=== PATIENT | female | born 2000 | race Caucasian/White ===

== ENCOUNTER → 2023-03-04 18:45 | Outpatient (BNVA) | payer SELFPAY | PROVIDERS: Family Provider Family Medicine; PCP Family Medicine; Visit Provider Family Medicine | DX: N92.6 Irregular menstruation, unspecified (principal); Z32.00 Encounter for pregnancy test, result unknown; R11.0 Nausea | CPT/HCPCS: 84702 ==

== ENCOUNTER 2024-07-24 02:59 | Inpatient (IN) | payer OTHER, SELFPAY ==
[2024-07-23 23:53] VITALS: BMI 42.1
[2024-07-24] VITALS (80 sets, daily range): BP systolic 113–162; BP diastolic 56–109; PULSE 76–121; RESP 15–18; TEMP 35.4–36.9; O2SAT 96–99
[2024-07-24 00:47] LABS: Nitrazine Paper, PH Positive
[2024-07-24 00:55] LABS: Basophils % 0.2 %; Eosinophils # 0.1 10^3/uL (0.0-0.8); Eosinophils % 0.5 %; Hematocrit 34.5 % (36-47); Lymphocytes # 2.9 10^3/uL (0.8-4.8); Lymphocytes % 22.4 %; Mean Corpuscular HGB Conc 31.3 g/dL (30-55); Mean Corpuscular Volume 76.7 fl (85-98); Mean Platelet Volume 9.5 fL (7.4-10.4); Monocytes # 0.9 10^3/uL (0.2-0.9); Monocytes % 7.1 %; Neutrophils # 8.82 10^3/uL (1.8-7.7); Neutrophils % 68.9 %; Nucleated Red Blood Cells % 0 %; Platelet Count 351 10^3/cmm (157-399); White Blood Count 12.81 10^3/uL (3.29-11.43)
[2024-07-24] MEDS: ondansetron 2 mg/ML SDV 2 mL 4 MG IVP (06:20)
[2024-07-24] MEDS: dextrose 5%-lactated ringers 1,000 ML 125 ML IV ×2 (06:21→13:59)
--- NOTE | 2024-07-24 07:18 | P.HP_ITS ---
Providers/Chief Complaint 2 Admitting Physician: En Heaton MD Primary Care Provider: Nely Morin DO Chief Complaint: Poss leaking of fluid HPI [employer] History of Present Illness Betzaida Chan is a 24 year old G3, P1 female that presented at 39 weeks 3 days with possible spontaneous rupture. Patient was found to be grossly ruptured. Fluid was initially thought to be clear but then appeared meconium stained. Patient had no significant complications during . GBS is negative. Patient had minimal progression over night and is only dilated to 2 and half centimeters with contractions occurring every 3 to 7 minutes. Present Details : 2 Para: 1 Labs Rubella: Non-Immune RPR: Negative GBS: Negative Review of Systems 2 General: Reports: 10 or more systems reviewed and unremarkable except in HPI and below Medications/Allergies Home Medications ?Medication ?Instructions ?Recorded ?Confirmed ?Last Taken ?Type omeprazole 20 mg capsule,delayed 20 mg PO DAILY 07/24/24 07/23/24 History release Allergies Allergy/AdvReac Type Severity Reaction Status Date / Time No Known Allergies Allergy Verified 07/23/24 23:54 Vitals/I&O/Wt Last Vital Signs Temp 96.4 F L 07/24/24 03:10 Pulse 85 07/24/24 07:06 BP 128/60 07/24/24 07:06 O2 Del Method Room Air 07/24/24 00:46 Weight last 48 hrs Weight 107.955 kg Physical Exam 2 Const: COMMON NORMALS: no acute distress and patient oriented x3 Resp: COMMON NORMALS: normal respiratory effort and No retractions Cardio: COMMON NORMALS: no JVD, regular rate and regular rhythm GI: OTHER: Gravid Extremity: COMMON NORMALS: no clubbing, cyanosis or edema Neuro: COMMON NORMALS: patient oriented x3, moves all extremities, no focal motor deficits and no sensory deficits noted Psych: COMMON NORMALS: cooperative Skin: COMMON NORMALS: no rashes or lesions noted Data 07/24/24 00:48 Results Labs OB ([facility]): 2 Blood Type O Positive 07/24/24 Antibody Screen Negative 07/24/24 Hct 34.5 % (36-47) L 07/24/24 Hgb 10.80 g/dL (11.27-16.99) L 07/24/24 Rho(D) Type Rh positive 07/24/24 Plt Count 351 10^3/cmm (157-399) 07/24/24 Ser , Semi-Qnt 1.00 mIU/mL 03/04/23 A&P Assessment and plan (1) Term : (2) Spontaneous rupture of amniotic membranes: Continue with labor management. Will augment labor with Pitocin. (3) 39 weeks gestation of : PDMP PDMP Reviewed: Not Reviewed Attestations 2 Medical Necessity Statement*: Patient admitted for rupture of membranes. Anticipate 2 midnight stay Coding Level of Care Code Acute Code for Chg Fwd Diagnoses Term Z34.90 Spontaneous rupture of amniotic membranes 39 weeks gestation of Z3A.39
[2024-07-24] MEDS: oxytocin 30 UNIT/500 ML BAG IV (07:21)
--- NOTE | 2024-07-24 09:43 | ANES.PREANE2 ---
Pre-Anesthetic Assessment Height/Weight: Height 5 ft 3 in Weight 238 lb Temp Pulse BP O2 Del Method 96.6 F L 94 154/82 Room Air 07/24/24 07:24 07/24/24 09:26 07/24/24 09:41 07/24/24 09:02 Preop Diagnosis: IUP Was Beta Chelly taken within 24 hours: N/A Was Clonidine taken within 24 hours: N/A Social No alcohol and No tobacco Exam alert, oriented x 3, clear to auscultation bilaterally and regular rate & rhythm Airway Submandibular: within normal limits Cervical ROM: within normal limits Mallampati: Class II Dentition: full Anesthetic Plan ASA status: 2 Anesthesia: Regional (specify below) Other: G2, P1 here for labor No issues with prior epidural History of GERD, controlled with omeprazole No issues during BMI 42 Labs reviewed acceptable for procedure Plan for routine epidural placement Medications/Allergies Home Medications ?Medication ?Instructions ?Recorded ?Confirmed ?Last Taken ?Type omeprazole 20 mg capsule,delayed 20 mg PO DAILY 07/24/24 07/24/24 07/23/24 History release Allergies Allergy/AdvReac Type Severity Reaction Status Date / Time No Known Allergies Allergy Verified 07/23/24 23:54 Current Medications Generic Name Dose Route Start Last Admin Trade Name Freq PRN Reason Stop Dose Admin Dextrose/Lactated Ringer's 1,000 mls @ 125 mls/hr 07/24/24 00:45 07/24/24 06:21 Dextrose 5%-Lactated Ringers IV 125 mls/hr .Q8H RENAE Administration Oxytocin 30 unit in 500 mls @ 1 mls/hr 07/24/24 07:30 07/24/24 08:15 Pitocin IV 8 milliunit/min .Q24H RENAE 8 mls/hr Titration Protocol 1 MILLIUNIT/MIN Ondansetron HCl 4 mg 07/24/24 00:45 07/24/24 06:20 Ondansetron 2 Mg/Ml Sdv 2 Ml IVP 4 mg Q4H PRN Administration NAUSEA AND VOMITING PFSH Anesthesia Female Reproductive History : 2 Data Anesthesia 07/24/24 00:48 Short CBC 07/24/24 Range/Units 00:48 WBC 12.81 H (3.29-11.43) 10^3/uL Hgb 10.80 L (11.27-16.99) g/dL Hct 34.5 L (36-47) % MCV 76.7 L (85-98) fl Plt Count 351 (157-399) 10^3/cmm Neut % (Auto) 68.9 % Neut # (Auto) 8.82 H (1.8-7.7) 10^3/uL Blood Bank 07/24/24 00:48 Blood Type O Positive Rho(D) Type Rh positive Antibody Screen Negative Cardiac Studies: No Data to Display
[2024-07-24] MEDS: ROPivacaine syringe 100 MG/50 ML SYRINGE 13 MG EPIDURAL ×2 (10:15→13:59)
--- NOTE | 2024-07-24 10:24 | P.ANES_ITS ---
Anesthesia Procedures Procedure/Date: 07/24/24 Epidural: Time Out Performed: Yes Consents Signed: Procedure Consent Consent: requested by attending/covering physician and from patient Lumbar Level: L3-L4 Epidural position: sitting Epidural procedure: sterile prep of area, 1% lidocaine to numb the area, 18 g needle, negative for paresthesia p assed, neg for paresthesia, test dose given, 1.5% xylocaine 1:200k epi, 0.2% Ropivacaine bolus ml, placed PCEA, no systemic response, sterile dressing applied and L.U.D. no apparent complications Additional Comments: Ropivacaine 0.2% set at 13 mL/h. Patient tolerated procedure well
[2024-07-24] MEDS: miSOPROStol 200 mcg Tablet 800 MCG PR (14:58)
[2024-07-24] MEDS: tranexamic acid 1,000 MG/100 ML PREMIX 600 MG IV (14:58)
--- NOTE | 2024-07-24 15:08 | PM.DELIVERY ---
Delivery Note: Date of delivery: July 24, 2024 Pre-delivery diagnoses: Term intrauterine , but today's rupture membranes Post-delivery diagnoses: Same, viable male Procedure: Operative vaginal delivery Op report anesthesia: Epidural Estimated blood loss (mL): 300 Pre-Delivery Course: This is a 24-year-old G3, P1 that presented at 39 weeks 3 days with spontaneous rupture membranes. Patient did not progress as expected after rupture membranes so her labor was augmented with Pitocin. The patient then progressed as expected to completion. Delivery: Once patient was completely dilated the patient was placed in the normal lithotomy position. The patient started pushing with contractions. heart tones dropped and right and was not recovering as well as we expected. Vacuum was opted to assist in the last of her delivery. Acute cup was placed onto the 's head in appropriate position and vacuum was increased until reached the green. The patient pushing gentle traction was placed on the vacuum with delivery of the head occurring with 1 single pole. Vacuum time was approximately 10 seconds. Once the infant's head was delivered the shoulders and body were delivered soon after with gentle downward traction. Infant was then placed onto mother's abdomen and the cord was clamped and cut. Cord blood was obtained and then placenta was then soon delivered. Increased bleeding was noted despite Pitocin bolus so TXA and Cytotec were given. The perineum showed a small second-degree perineal tear and first-degree right labial tear. Perineal tear was repaired with 2-0 Vicryl and the labial tear was repaired with 3-0 chromic. I did the procedure the uterus was firm and bleeding was much more controlled. Post-Delivery Status: Stable A&P Assessment and plan (1) Vacuum-assisted vaginal delivery: Proceed with routine care. (2) Request for sterilization: The patient has request for tubal ligation. Consent was obtained and signed greater than 30 days ago. Will consult Dr. Mejia for this procedure to see if they can be done during her hospitalization or if we need to wait 6 weeks . PDMP PDMP Reviewed: Not Reviewed Coding Level of Care Code Acute Code for Chg Fwd Diagnoses Vacuum-assisted vaginal delivery Z37.9 Request for sterilization Z30.2
--- NOTE | 2024-07-24 18:48 | PC.NURSE ---
1730 PATIENT AMBULATED TO BATHROOM AND DID GREAT, WENT OVER PP CARE AND THEN SHE AMBULATED TO OB 10, ORIENTED TO ROOM, CALL LIGHT SYSTEM,ETC. TOLD HER IF SHE FEELS OK THAT SHE COULD GET UP ON HER OWN, BUT TO LET US KNOW IF SHE NEEDS ANYTHING.
[2024-07-24] MEDS: docusate sodium 100 mg Capsule PO (20:47)
[2024-07-24] MEDS: ibuprofen 800 mg tablet PO (20:47)
[2024-07-25 05:00] VITALS: BP 115/63; PULSE 91; RESP 17
[2024-07-25 05:27] LABS: Hematocrit 32.4 % (36-47); Mean Corpuscular HGB Conc 31.5 g/dL (30-55); Mean Corpuscular Hemoglobin 24.2 pg (27-33); Mean Corpuscular Volume 76.8 fl (85-98); Mean Platelet Volume 9.9 fL (7.4-10.4); Platelet Count 313 10^3/cmm (157-399); Red Blood Count 4.22 10^6/uL (3.85-5.65); Red Cell Distribution Width 15.4 % (12.1-15.1); White Blood Count 12.95 10^3/uL (3.29-11.43)
--- NOTE | 2024-07-25 09:34 | P.DS_ITS ---
Discharge Providers PERFORATOR TYPIST Date of Admission: 07/24/24 02:59 Date of Discharge: 07/25/24 Attending Provider at Admission: En Heaton MD Attending Provider at Discharge: En Heaton MD Primary Care Provider: Nely Morin DO Diagnoses at Discharge Discharge Diagnosis (1) Vacuum-assisted vaginal delivery: Status: Acute (2) Request for sterilization: Details from hospital stay: Will do referral for 6 weeks laparoscopic tubal. Status: Acute Reason for Visit Reason for Visit: Poss leaking of fluid Hospital Course Hospital Course This is a 24-year-old G3, P2 that delivered vaginally on July 24. No significant complications prior to delivery. No complications during or after delivery.) care was unremarkable. Information Peripartum Data: Delivery Method: Vaginal Laceration description: Perineal - 2nd Degree complications: none Physical Exam Const: COMMON NORMALS: no acute distress and patient oriented x3 Neck/C-Spine: COMMON NORMALS: no JVD Resp: COMMON NORMALS: normal respiratory effort and No retractions Cardio: COMMON NORMALS: no JVD, regular rate and regular rhythm RATE: regular rate RHYTHM: regular rhythm GI: OTHER: Uterus firm and below umbilicus Extremity: COMMON NORMALS: no clubbing, cyanosis or edema Neuro: COMMON NORMALS: patient oriented x3, moves all extremities, no focal motor deficits and no sensory deficits noted Psych: COMMON NORMALS: cooperative Skin: COMMON NORMALS: no rashes or lesions noted GENERAL SKIN EXAM: no rashes or lesions noted Urinary Catheter Management: Francois: Cath Placed During This Visit: yes Urinary Catheter Date of Insertion: 07/24/24 Urinary Catheter Time of Insertion: 10:30 Discharge Data Studies Completed and Pending Laboratory Results WBC 12.95 10^3/uL (3.29-11.43) H 07/25/24 05:15 RBC 4.22 10^6/uL (3.85-5.65) 07/25/24 05:15 Hgb 10.20 g/dL (11.27-16.99) L 07/25/24 05:15 Hct 32.4 % (36-47) L 07/25/24 05:15 MCV 76.8 fl (85-98) L 07/25/24 05:15 MCH 24.2 pg (27-33) L 07/25/24 05:15 MCHC 31.5 g/dL (30-55) 07/25/24 05:15 RDW 15.4 % (12.1-15.1) H 07/25/24 05:15 Plt Count 313 10^3/cmm (157-399) 07/25/24 05:15 MPV 9.9 fL (7.4-10.4) 07/25/24 05:15 Neut % (Auto) 68.9 % 07/24/24 00:48 Lymph % (Auto) 22.4 % 07/24/24 00:48 [place] % (Auto) 7.1 % 07/24/24 00:48 Eos % (Auto) 0.5 % 07/24/24 00:48 Baso % (Auto) 0.2 % 07/24/24 00:48 Neut # (Auto) 8.82 10^3/uL (1.8-7.7) H 07/24/24 00:48 Lymph # (Auto) 2.9 10^3/uL (0.8-4.8) 07/24/24 00:48 [place] # (Auto) 0.9 10^3/uL (0.2-0.9) 07/24/24 00:48 Eos # (Auto) 0.1 10^3/uL (0.0-0.8) 07/24/24 00:48 Baso # (Auto) 0.0 10^3/uL (0.0-0.1) 07/24/24 00:48 Nucleated RBC % (auto) 0 % 07/24/24 00:48 Nucleated RBCs # 0.0 /100WBC 07/24/24 00:48 Fluid pH (paper) Positive H 07/24/24 00:04 Blood Type O Positive 07/24/24 00:48 Rho(D) Type Rh positive 07/24/24 00:48 Antibody Screen Negative 07/24/24 00:48 Vitals Last Vital Signs Temp 98.2 F 07/24/24 20:48 Pulse 91 07/25/24 05:00 Resp 17 07/25/24 05:00 BP 115/63 07/25/24 05:00 Pulse Ox 96 07/24/24 20:48 O2 Del Method Room Air 07/25/24 05:00 Results Labs OB ([facility]): Blood Type O Positive 07/24/24 Antibody Screen Negative 07/24/24 Hct 32.4 % (36-47) L 07/25/24 Hgb 10.20 g/dL (11.27-16.99) L 07/25/24 Rho(D) Type Rh positive 07/24/24 Plt Count 313 10^3/cmm (157-399) 07/25/24 Ser , Semi-Qnt 1.00 mIU/mL 03/04/23 Discharge Plan Discharge Patient Disposition: Home Condition: Stable Prescriptions: Continued omeprazole 20 mg Capsule,Delayed Release(Dr/Ec) 20 mg PO DAILY Discharge Orders: Discharge Order (Routine); Ordered 07/25/24 Ordered By: En Heaton Referrals: En Heaton MD [Physician] - 1 month Discharge Diet: Usual diet Discharge Activity: Limit activity as instructed Patient Instructions: Depression (DC), Opioid Safety (DC), Preeclampsia and Eclampsia After Delivery (GEN), Hemorrhage (DC), OB Discharge Report, OB Food/Drug Interaction Guide, OB Care at Home, Opioid Safety, OB Vaginal Deliveries, Abnormal Bleeding Discharge Attestations PERFORATOR TYPIST Time Spent in Discharge Care*: less than 30 min Coding Level of Care Code Acute Code for Chg Fwd Diagnoses Vacuum-assisted vaginal delivery Z37.9 Request for sterilization Z30.2
[2024-07-25] MEDS: ibuprofen 800 mg tablet PO ×2 (10:36→14:52)
[2024-07-25] MEDS: PRENATAL VIT NO.130/IRON/FOLIC 1 EACH TABLET PO (10:37)
[2024-07-25] MEDS: docusate sodium 100 mg Capsule PO (10:37)
[2024-07-25 11:00] VITALS: BP 130/78; PULSE 100; TEMP 36.7
[2024-07-25] MEDS: measles,mumps,rubella pf Vial (w/diluent) 0.5 ML SUBCUT (14:52)
[2024-07-25 15:03] VITALS: BP 131/65; PULSE 83; TEMP 36.7
[2024-07-25 15:10] VITALS: BP 131/65; PULSE 83; TEMP 36.7; O2SAT 98
== END 2024-07-25 15:40 | disposition home or self-care (01) | DRG 807 ==
LOC: OPOB 02:59 → OBGYN 02:59
PROVIDERS: Admitting Provider Family Medicine; PCP Family Medicine; Visit Provider Family Medicine
DX: O77.0 Labor and delivery complicated by meconium in amniotic fluid (principal); Z37.0 Single live birth; O70.1 Second degree perineal laceration during delivery; Z3A.39 39 weeks gestation of pregnancy
CPT/HCPCS: 36415; 51702; 59025; 59409; 83986; 85025; 85027; 86850; 86900; 90707; 96372; 96374; 99211; J2405; J2590; J2795; J3490; J7121; J9999